=== PATIENT | female | born 2000 | race Caucasian/White ===

== ENCOUNTER 2019-11-20 04:16 | Inpatient (IN) ==
[~2019-11-20 04:16] MED LIST: *HR* FentaNYL (PF) 100 MCG/2 ML VIAL IVP PRN; Azithromycin 500 MG in 0.9 % Sodium Chloride 250 ML IVPB ONE; Famotidine 20 MG/2 ML VIAL IVP PRN; Lidocaine 1% 20 ML MDV INFILT PRN; Metoclopramide 10 MG/2 ML VIAL IVP PRN; Naloxone 0.4 MG/ML INJ IVP PRN; Ondansetron 4 MG/2 ML VIAL IVP PRN
[2019-11-20] MEDS ORDERED: Ringers Solution, Lactated 1,000 ML IVC SCH (04:30)
[2019-11-20 04:44] LABS: Basophils % 0.2 %; Eosinophils # 0.1 K/mcL (0.0-0.6); Eosinophils % 0.9 %; Hematocrit 38.1 % (35.3-44.9); Hemoglobin 13.1 g/dL (11.5-15.4); Immature Granulocytes % 0.6 % (0-4); Lymphocytes # 3.4 K/mcL (0.6-4.6); Lymphocytes % 25.7 %; Mean Corpuscular HGB Conc 34.4 g/dL (31.6-35.5); Mean Corpuscular Hemoglobin 33.2 pg (28.0-33.3); Mean Corpuscular Volume 96.7 fL (83.0-100.0); Mean Platelet Volume 10.5 fL (9.4-12.4); Monocytes # 0.8 K/mcL (0.0-1.3); Monocytes % 6.3 %; Neutrophils # 8.7 K/mcL (1.6-8.9); Platelet Count 363 K/mcL (140-400); Red Blood Count 3.94 M/mcL (3.82-4.97); Red Cell Distribution Width 16.5 % (11.5-14.5); Segmented Neutrophils % 66.3 %; White Blood Count 13.2 K/mcL (4.3-11.1)
[2019-11-20 04:53] LABS: Amphetamine Screen,Urine Negative ng/mL (Cutoff=1000); Barbiturate Screen,Urine Negative ng/mL (Cutoff=200); Benzodiazepines Screen,Urine Negative ng/mL (Cutoff=200); Cannabinoid Screen,Urine Negative ng/mL (Cutoff = 50); Cocaine Screen,Urine Negative ng/mL (Cutoff= 300); Opiate Screen,Urine Negative ng/mL (Cutoff=300); Phencyclidine Screen,Urine Negative ng/mL (Cutoff=25)
[2019-11-20] MEDS ORDERED: Oxytocin 20 units/ LR 1000 mL 20 UNIT/1,000 ML BAG IVC ONE (05:52)
[2019-11-20] MEDS ORDERED: *HR* FentaNYL (PF) 100 MCG/2 ML VIAL EP ONE (06:04)
[2019-11-20] MEDS ORDERED: EPHEDrine 50 MG/ML VIAL IVP PRN (06:04)
[2019-11-20] MEDS ORDERED: Bupivacaine-MPF 0.25% 10 ML VIAL EP ONE (06:04)
[2019-11-20] MEDS ORDERED: Bupivacaine-MPF 0.25% 10 ML VIAL ONE ×2 (06:06→06:12)
[2019-11-20] MEDS ORDERED: *HR* FentaNYL (PF) 100 MCG/2 ML VIAL ONE (06:06)
[2019-11-20] MEDS ORDERED: Epidural Premix (fent/bupiv) 110 ML EP SCH (06:15)
[2019-11-20] MEDS ORDERED: Prenatal Vit/FA 1 EACH TABLET PO SCH (09:39)
[2019-11-20] MEDS ORDERED: Acetaminophen 325 MG TABLET PO PRN (09:39)
[2019-11-20] MEDS ORDERED: Benzocaine/Menthol 56 GM AEROSOL SPRAY TP PRN (09:39)
[2019-11-20] MEDS ORDERED: Oxytocin 20 units/ LR 1000 mL 20 UNIT/1,000 ML BAG IVC SCH (09:39)
[2019-11-20] MEDS: Ibuprofen 600 MG TABLET PO PRN ×2 (10:37→19:54)
[2019-11-21] MEDS: Ibuprofen 600 MG TABLET PO PRN (07:28)
[2019-11-21 08:14] VITALS: BP 108/70
== END 2019-11-21 11:45 | disposition home or self-care (01) | DRG 560 ==
LOC: 1NENULAB → 1NENUOBS 10:19
PROVIDERS: ADMIT Obstetrics & Gynecology; ATTEND Obstetrics & Gynecology